=== PATIENT | female | born 1985 | race Caucasian/White ===

== ENCOUNTER 2017-04-15 17:50 | Emergency (ER) | payer OTHER ==
[2017-04-15 18:55] VITALS: BP 118/91
--- NOTE | 2017-04-15 19:37 | UC ---
Shoulder Pain HPI - HPI Summary HPI Summary: Patient presents to with right sided shoulder pain which has been worsening over the past several weeks. She denies injury. Pain is located over the top of the right shoulder and radiates to the posterior shoulder to the scapula. 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 Denies other symptoms. Denies numbness or tingling. - History of Current Complaint Chief Complaint: UCUpperExtremity Stated Complaint: RIGHT SHOULDER PAIN Time Seen by Provider: 04/15/17 19:09 Hx Obtained From: Patient Hx Last Menstrual Period: 03/20/17 ?: No Onset/Duration: Sudden Onset Timing: Constant Severity Initially: Moderate Severity Currently: Moderate Location Of Pain: Is Discrete @ - right shoulder Pain Scale Used: 0-10 Numeric Character: Aching, Spasmodic, Burning Aggravating Factor(s): Lifting, Flexion, Extension, Internal Rotation, External Rotation Alleviating Factor(s): Rest Associated Signs And Symptoms: Positive: Negative Related History: Dominant Hand Right - Risk Factors Non-Orthopedic Risk Factor: Negative DVT Risk Factors: Negative Septic Arthritis Risk Factor: Negative - Allergies/Home Medications Allergies/Adverse Reactions: Allergies Allergy/AdvReac Type Severity Reaction Status Date / Time No Known Allergies Allergy Verified 04/15/17 18:50 Home Medications: Home Medications Multivitamins/Minerals TAB* [Thera M Plus TAB*] 1 tab PO DAILY 04/15/17 [ History Confirmed 04/15/17] PMH/Surg Hx/FS Hx/Imm Hx Previously Healthy: Yes - Surgical History Surgical History: Yes Surgery Procedure, Year, and Place: 2 C SECTIONS, TUBAL LIGATION, EAR SURGERY A CHILD. T&A. - Social History Occupation: Unemployed Lives: With Family Alcohol Use: None Substance Use Type: None Smoking Status (MU): Never Smoked Tobacco Type: Cigarettes Amount Used/How Often: 1/2 PPD Have You Smoked in the Last Year: Yes Household Exposure Type: Cigarettes Review of Systems Constitutional: Negative Skin: Negative Respiratory: Negative Cardiovascular: Negative Gastrointestinal: Negative Motor: Decreased ROM, Weakness Neurovascular: Decreased Sensation Musculoskeletal: Negative, Arthralgia Neurological: Negative Psychological: Negative All Other Systems Reviewed And Are Negative: Yes Physical Exam Triage Information Reviewed: Yes Appearance: Well-Appearing, Well-Nourished Vital Signs: Initial Vital Signs Temp 99.3 F 04/15/17 18:51 Pulse 58 04/15/17 18:51 Resp 16 04/15/17 18:51 BP 118/91 04/15/17 18:51 Pulse Ox 99 04/15/17 18:51 Vital Signs Reviewed: Yes Eye Exam: Normal Eyes: Positive: Conjunctiva Clear Dental Exam: Normal Neck exam: Normal Neck: Positive: Supple, No Lymphadenopathy Respiratory: Positive: Chest non-tender, Lungs clear Cardiovascular Exam: Normal Cardiovascular: Positive: RRR Musculoskeletal: Positive: Strength Limited @ - right shoulder abduction, ROM Limited @ - abduction of right arm Neurological Exam: Normal Neurological: Positive: Alert Psychological Exam: Normal Psychological: Positive: Normal Response To Family Skin Exam: Normal Shoulder Course/Dx - Course Course Of Treatment: Patient presents with right shoulder pain and tendonitis. Difficulty abducting the right shoulder with radiation to the scapula. I have discussed overuse injuries/tendonitis and the need for rest. She has been referred to Dr. Patel and given flexeril, pain medication and encouraged to use moist heat and ibuprofen for relief. Return precautions given.Patients Medications reviewed with patients. Patient is OK with discharge. - Differential Dx/Diagnosis Differential Diagnosis/HQI/PQRI: Arthritis, Sprain, Strain, Tendonitis Provider Diagnoses: Rotator Cuff Tendonitis Discharge - Discharge Plan Condition: Stable Disposition: HOME Prescriptions: Cyclobenzaprine TAB* [Flexeril TAB*] 10 mg PO BID PRN #16 tab PRN Reason: Pain HYDROcodone/ACETAMIN 5-325 MG* [Everson 5-325 TAB*] 1 tab PO Q4H PRN #24 tab MDD 6 PRN Reason: Pain Patient Education Materials: Rotator Cuff Tendinitis (ED) Referrals: Rahat Patel MD [Medical Doctor] - Cara Antonio MD [Primary Care Provider] - Additional Instructions: Ibuprofen 600mg three times daily x 10 days without missing a dose Moist heat to the area (corn bag or rice bag) - you can buy at pharmacy Flexeril at bedtime for muscle pain and in the AM if your shoulder feels stiff Pain medication for breakthrough pain not well controlled with muscle relaxers and Ibuprofen You will feel improved with these medications, but you still need to stop using the arm as much as possible Follow up with Dr. Jessica for further evaluation
== END 2017-04-15 19:34 | disposition home or self-care (01) ==
LOC: UCCORT 17:50
DX: M75.101 Unspecified rotator cuff tear or rupture of right shoulder, not specified as traumatic (principal); Z87.891 Personal history of nicotine dependence
CPT/HCPCS: 99202; G0463

== ENCOUNTER 2018-08-08 17:21 | Emergency (ER) | payer OTHER ==
[2018-08-08 18:01] VITALS: BP 99/63
--- NOTE | 2018-08-08 18:40 | UC ---
Ear Complaint HPI - HPI Summary HPI Summary: uri symptoms over the last week. Left ear pain today. H/O ear surgeries and multiple ear infections. - History of Current Complaint Chief Complaint: UCEar Stated Complaint: COLD, LT EAR COMPLAINT Time Seen by Provider: 08/08/18 18:32 Hx Obtained From: Patient Hx Last Menstrual Period: 07/13/18 ?: No Onset/Duration: Sudden Onset, Lasting Weeks - 1, Worse Since - today with left ear pain. Severity Initially: Mild Severity Currently: Mild Pain Intensity: 3 Associated Signs/Symptoms: Positive: Hearing Loss, URI Symptoms - Allergies/Home Medications Allergies/Adverse Reactions: Allergies Allergy/AdvReac Type Severity Reaction Status Date / Time No Known Allergies Allergy Verified 08/08/18 18:02 PMH/Surg Hx/FS Hx/Imm Hx Previously Healthy: Yes - Surgical History Surgical History: Yes Surgery Procedure, Year, and Place: 2 C SECTIONS, TUBAL LIGATION, EAR SURGERY A CHILD. T&A. 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 Lives: With Family Alcohol Use: None Substance Use Type: None Smoking Status (MU): Never Smoked Tobacco Type: Cigarettes Amount Used/How Often: 1/2 PPD Have You Smoked in the Last Year: Yes Household Exposure Type: Cigarettes Review of Systems ENT: Sore Throat, Ear Ache Respiratory: Cough Is Patient Immunocompromised?: No All Other Systems Reviewed And Are Negative: Yes Physical Exam Triage Information Reviewed: Yes Appearance: Well-Appearing, No Pain Distress, Well-Nourished Vital Signs: Initial Vital Signs Temp 98.4 F 08/08/18 17:56 Pulse 44 08/08/18 17:56 Resp 16 08/08/18 17:56 BP 99/63 08/08/18 17:56 Pulse Ox 100 08/08/18 17:56 Vital Signs Reviewed: Yes ENT: Positive: Pharynx normal, Nasal congestion - with allergic changes, TMs normal - AD, TM dull - with scarring and retraction. Neck exam: Normal Respiratory Exam: Normal Cardiovascular Exam: Normal Musculoskeletal Exam: Normal Neurological Exam: Normal Psychological Exam: Normal Skin Exam: Normal Ear Complaint Course/Dx - Differential Dx/Diagnosis Differential Diagnosis/HQI/PQRI: Barotrauma, Otitis Externa, Otitis Media, URI Provider Diagnoses: Acute URI. Allergic rhinitis. Eustachian tube dysfunction. Discharge - Sign-Out/Discharge Documenting (check all that apply): Patient Departure All imaging exams completed and their final reports reviewed: No Studies - Discharge Plan Condition: Stable Disposition: HOME Patient Education Materials: Upper Respiratory Infection (ED), Allergic Rhinitis (ED) Referrals: Loan Pate MD [Primary Care Provider] - Additional Instructions: NASAL SPRAYS AND DROPS: Afrin in the PUMP/ MIST bottle (Get generic 12 hours nasal decongestant spray). Tilt your head down and look at the floor while doing a strong sniff with the spray. Decongestant nasal sprays and drops often give dramatic relief from congestion. They are often recommended for patients with sinus infection to assist with sinus drainage. Persons with high blood pressure should consult the doctor before using these nasal sprays. Afrin and Conrado-Synephrine are common [id number] preparations. They should not be used for more than five days, as "rebound" congestion can occur - - the congestion flares as the drug wears off. A way of dealing with this rebound congestion problem is to medicate only one nostril each time, allowing the other nostril to recover from the medicine' s effects. When you no longer need the drug during the day, spray only one nostril each night. This helps you sleep well without severe rebound congestion. Call the doctor if you develop severe headache, palpitations, or chest pain. NEILMED SINUS RINSE: CHECK OUT AT [employer] Saline nasal wash helps with mucous, allergies and congestion. It can be used up to twice a day or only as needed. Use lukewarm tap water. It does not have to be sterilized or distilled water. Do 1/3 on each side and snort out of both nostrils. Repeat the process with 1/6 of the bottle on each side with snorting in between to finish the solution in the bottle EUSTATION TUBE DYSFUNCTION: The tube that allows the middle ear to equalize the pressure with the outside air is blocked. This can be due to colds, allergies, smoke, or other irritants. Short term treatment can include Afrin, sudafed and nasal cortisone sprays for allergies. - Billing Disposition and Condition Condition: STABLE Disposition: Home
== END 2018-08-08 18:55 | disposition home or self-care (01) ==
LOC: UCCORT 17:21
DX: J06.9 Acute upper respiratory infection, unspecified (principal); J30.9 Allergic rhinitis, unspecified; H69.82 Other specified disorders of Eustachian tube, left ear
CPT/HCPCS: 99211; G0463

== ENCOUNTER 2019-09-28 12:45 | Emergency (ER) | payer OTHER ==
[2019-09-28 13:24] VITALS: BP 120/85
--- NOTE | 2019-09-28 13:37 | UC ---
Knee Pain HPI - HPI Summary HPI Summary: Patient is a 34yo female presenting with L knee pain and swelling x8 days. Denies injury or trauma. Is unsure what she was doing when it began. Describes pain as "constant severe aching." States it "feels deep in the knee and radiates to the back and into the back of her L thigh. Notes worse with ambulation. Denies decreased ROM. Denies numbness and tingling. Denies alleviating factors despite resting, icing, and taking ibuprofen. Denies past knee surgeries. States she was seen for "L axilla, L groin area, and L knee pain by her pcp last friday who told her to hot pack the axilla and groin and did not address knee pain." Patient notes resolution of axilla and groin pain/ swelling. - History of Current Complaint Stated Complaint: L KNEE COMP Hx Obtained From: Patient Hx Last Menstrual Period: 09/24/19 Onset/Duration: Gradual Onset, Lasting Days Severity Initially: Moderate Severity Currently: Severe Pain Intensity: 7 Pain Scale Used: 0-10 Numeric - Allergies/Home Medications Allergies/Adverse Reactions: Allergies Allergy/AdvReac Type Severity Reaction Status Date / Time amoxicillin [From Augmentin] Allergy Severe full body Verified 09/28/19 13:16 rash, throat swelling. clavulanic acid Allergy Severe full body Verified 09/28/19 13:16 [From Augmentin] rash, throat swelling. PMH/Surg Hx/FS Hx/Imm Hx Previously Healthy: Yes - Surgical History Surgical History: Yes Surgery Procedure, Year, and Place: 2 C SECTIONS, TUBAL LIGATION, EAR SURGERY A CHILD. T&A. - Family History Known Family History: Negative: Cardiac Disease, Hypertension, Diabetes - Social History Alcohol Use: None Substance Use Type: None Smoking Status (MU): Heavy Every Day Tobacco Smoker Type: Cigarettes Amount Used/How Often: 1/2 PPD Have You Smoked in the Last Year: Yes Household Exposure Type: Cigarettes Review of Systems All Other Systems Reviewed And Are Negative: Yes Constitutional: Positive: Negative Skin: Positive: Negative. Negative: Rash, Bruising Respiratory: Positive: Negative Cardiovascular: Positive: Negative Gastrointestinal: Positive: Negative Musculoskeletal: Positive: Arthralgia - L knee, Edema - L anterior knee. Negative: Decreased ROM Neurological: Negative: Paresthesia, Numbness Physical Exam Triage Information Reviewed: Yes Appearance: Well-Appearing, No Pain Distress, Well-Nourished Vital Signs: Initial Vital Signs Temp 98.3 F 09/28/19 13:17 Pulse 65 09/28/19 13:17 Resp 14 09/28/19 13:17 BP 120/85 09/28/19 13:17 Pulse Ox 100 09/28/19 13:17 Vital Signs Reviewed: Yes Eyes: Positive: Conjunctiva Clear ENT: Positive: Hearing grossly normal Neck: Positive: Supple Respiratory: Positive: No respiratory distress Cardiovascular: Positive: Pulses Normal - strong pedal and popliteal pulses b/l , Brisk Capillary Refill Musculoskeletal: Positive: Strength Intact, ROM Intact - left knee flexion and extension, No Edema, Other: - observed normal ambulation without pain distress or favoring of L leg. no tenderness to palpation of anterior, lateral, medial, or posterior L knee. no erythema, warmth, or eccymosis. no fluctuance. no s/s of infection. no calf tenderness Neurological Exam: Other - sensation grossly intact Neurological: Positive: Alert Psychological: Positive: Normal Response To Family, Age Appropriate Behavior Skin Exam: Normal - no erythema or eccymosis Diagnostics - Radiology L knee Radiology Interpretation Completed By: Radiologist Summary of Radiographic Findings: FINDINGS: BONE DENSITY: Normal. BONES: There is no displaced fracture. JOINTS: There is no arthropathy. There is no suprapatellar joint effusion or lipohemarthrosis. ALIGNMENT: There is no dislocation. SOFT TISSUES: Unremarkable. OTHER FINDINGS: None. IMPRESSION: NO ACUTE OSSEOUS INJURY. IF SYMPTOMS PERSIST, RECOMMEND REPEAT IMAGING. Knee Pain Course/Dx - Course Course Of Treatment: Discussed normal xrays with patient. I prescribed naproxen and instructed to continue with RICE. Instructed her to follow up with ortho for further evaluation and possible further imaging. Patient voiced understanding and agreed with treatment plan. - Differential Dx/Diagnosis Differential Diagnosis/HQI/PQRI: Patellofemoral Syndrome, Sprain, Strain, Tendonitis, Other - meniscus/ACL injury Provider Diagnosis: Left knee pain Discharge ED - Sign-Out/Discharge Documenting (check all that apply): Patient Departure All imaging exams completed and their final reports reviewed: Yes - Discharge Plan Condition: Stable Disposition: HOME Prescriptions: Naproxen [Naproxen 500 mg tab] 500 mg PO BID PRN #60 tablet PRN Reason: Pain - Moderate Patient Education Materials: Knee Pain (ED) Referrals: Adelia Giang MD [Medical Doctor] - Additional Instructions: As discussed, your xrays did not show any abnormalities. Rest, ice and/or heat, elevate, and use compression with an braden wrap to help alleviate pain symptoms. You may take Naproxen as prescribed for pain relief. Do not take ibuprofen or any other NSAID if you are taking the naproxen. Refrain from strenous physical activity until pain has resolved. If pain persists or worsens, follow up with the orthopedic referral as listed below. - Billing Disposition and Condition Condition: STABLE Disposition: Home
== END 2019-09-28 14:41 | disposition home or self-care (01) ==
LOC: UCCORT 12:45
DX: M25.562 Pain in left knee (principal); M79.89 Other specified soft tissue disorders; M54.9 Dorsalgia, unspecified; M79.652 Pain in left thigh; F17.210 Nicotine dependence, cigarettes, uncomplicated; Z88.0 Allergy status to penicillin
CPT/HCPCS: 99212; G0463